=== PATIENT | male | born 1940 | race Caucasian/White ===

== ENCOUNTER 2017-07-22 15:32 | Inpatient (IN) | payer OTHER ==
[~2017-07-22] VITALS: Ht 172.7 cm; Wt 74.8 kg
--- NOTE | ~2017-07-22 | EKG ---
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
--- NOTE | ~2017-07-22 | 2DMMODE ---
[facility] [address] [place] [address] 2 D/M-MODE ECHOCARDIOGRAM Name: EVELIA ADAMSON Room #: 205-P [facility] IN ..#: [id number] Admission: 07/22/17 Attend Phys: Rakesh Blanco, Discharge: Date of : 44 Date of Service: 07/23/17 0950 Report #: [id number] THIS REPORT FOR: //name// APPROVED REPORT Study performed: 07/23/2017 07:17:30 EXAM: Comprehensive 2D, Doppler, and color-flow Echocardiogram Patient Location: Echo lab Room #: [facility] Status: routine BSA: 1.88 HR: 73 bpm BP: 143/87 mmHg Rhythm: NSR Other Information Study Quality: Fair/low parasternal window Technically limited study due to lung disease. Indications Recent pulmonary embolism. Hx: COPD 2D Dimensions RVDd: 39.15 mm LVEF(%): 55.19 (>50%) IVSd: 9.08 (7-11mm) LVOT Diam: 21.10 (18-24mm) LVDd: 39.39 mm PWd: 8.33 (7-11mm) LVDs: 28.26 (25-40mm) Aortic Root: 34.20 mm Hyatt's LVEF: 55.19 % Volumes Left Atrial Volume (Systole) Single Plane 4CH: 33.73 mL Single Plane 2CH: 31.54 mL LA ESV Index: 19.00 mL/m2 Aortic Valve AoV Peak Randy.: 1.14 m/s AO Peak Gr.: 5.24 mmHg LVOT Max P.28 mmHg LVOT Max V: 0.91 m/s ANGI Vmax: 2.77 cm2 Mitral Valve E/A Ratio: 0.8 [facility] [address] [place] [address] 2 D/M-MODE ECHOCARDIOGRAM Name: EVELIA ADAMSON Room #: 205-[facility] IN ..#: [id number] Admission: 07/22/17 Attend Phys: Rakesh Blanco, Discharge: Date of : 44 Date of Service: 07/23/17 0950 Report #: [id number] MV Decel. Time: 184.41 ms MV E Max Randy.: 0.71 m/s MV A Randy.: 0.86 m/s MV PHT: 53.48 ms IVRT: 92.27 ms Pulmonary Valve PV Peak Randy.: 0.96 m/s PV Peak Gr.: 3.78 mmHg Tricuspid Valve TR Peak Randy.: 3.04 m/s RAP Estimate: 5.00 mmHg TR Peak Gr.: 37.04 mmHg Left Ventricle The left ventricle is normal size. There is normal LV segmental wall motion. There is normal left ventricular wall thickness. Left ventricular systolic function is normal. LVEF is 55-60%. Mild diastolic dysfunction is present (impaired relaxation pattern). Right Ventricle The right ventricle is normal size. The right ventricular systolic function is normal. Atria The left atrium size is normal. The right atrium size is normal. Aortic Valve Aortic valve is calcified. Trace aortic regurgitation. There is no aortic valvular stenosis. Mitral Valve The mitral valve is normal in structure. There is no mitral valve regurgitation noted. No evidence of mitral valve stenosis. Tricuspid Valve The tricuspid valve is normal in structure. Trace to mild tricuspid regurgitation. Estimated PAP is 40-45mmHg. Pulmonic Valve The pulmonary valve is normal in structure. There is no pulmonic valvular regurgitation. Great Vessels The aortic root is normal in size. Aortic arch is not well [facility] [address] [place] [address] 2 D/M-MODE ECHOCARDIOGRAM Name: EVELIA ADAMSON Room #: 205-P [facility] IN .R.#: [id number] Admission: 07/22/17 Attend Phys: Rakesh Blanco, Discharge: Date of : 44 Date of Service: 07/23/17 0950 Report #: [id number] visualized. IVC is normal in size and collapses >50% with inspiration. Pericardium There is no pericardial effusion. <Conclusion> The left ventricle is normal size. There is normal left ventricular wall thickness. Left ventricular systolic function is normal. Mild diastolic dysfunction is present (impaired relaxation pattern). The right ventricle is normal size. The left atrium size is normal. Aortic valve is calcified. Trace aortic regurgitation. The mitral valve is normal in structure. Trace to mild tricuspid regurgitation. Estimated PAP is 40-45mmHg. <ELECTRONICALLY SIGNED> By: Jan Crabtree MD 07/23/1750 9 Jan Crabtree MD /INF
--- NOTE | ~2017-07-22 | EKG ---
[address] [address] ELECTROCARDIOGRAM REPORT Name: EVELIA ADAMSON Room #: 205-P ADM IN M.R.#: [id number] Admission: 07/22/17 Attend Phys: Rakesh Blanco MD Discharge: Date of : 44 Report #: [id number] THIS REPORT FOR: //name// [facility] Test Date: 2017-07-27 Test Time: 11:13:48 Pat Name: EVELIA ADAMSON Department: Room: 205 P Gender: M Vasc Tech: Justin MANCILLA : 1940 Requested By: Darlene Mann Order Number: [id number] MD: Mohinder Saha Measurements Intervals [place] Rate: 82 P: 64 MA: 145 QRS: 75 QRSD: 96 T: 56 QT: 394 QTc: 461 Interpretive Statements Sinus rhythm No significant abnormality Compared to ECG 07/22/2017 16:10:52 No significant changes Electronically Signed On 07-27-2017 16:37:13 CDT by Mohinder Saha [email or web address] <ELECTRONICALLY SIGNED> By: Mohinder Saha MD, [facility] 07/27/17 1637 111 12 Mohinder Saha MD, [facility] /EPI
--- NOTE | ~2017-07-22 | HC ---
[facility] [place] [address] [place] [address] CONSULTATION Name: EVELIA ADAMSON Room #: 205-P ADM IN M.R.#: [id number] Admission: 07/22/17 Attend Phys: Rakesh Blanco MD Discharge: Date of : 44 Report #: [id number] THIS REPORT FOR: //name// CC: [facility] physician/PCP Rakesh Blanco DATE OF SERVICE: 07/24/2017 REFERRING PROVIDER: Fede Alexandra MD REASON FOR CONSULTATION: Colovesical fistula. HISTORY OF PRESENT ILLNESS: The patient is a 77-year-old male who presented with a year and a half of chronic right leg swelling and dyspnea on exertion. The patient was found to have a DVT and was placed on Lovenox and Coumadin. Ultimately, the patient was then transitioned to Xarelto with a CT angiogram of the chest showing pulmonary emboli. While admitted, he has received a repeat CT angiogram of the chest as well as a CT scan of the abdomen and pelvis due to mild nonspecific abdominal discomfort. 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 PAST MEDICAL HISTORY: COPD, hyperlipidemia and memory issues. HOME MEDICATIONS: Xarelto, fluticasone, atorvastatin, donepezil, and Lovenox. ALLERGIES: SULFA, which causes a rash. FAMILY HISTORY: Reviewed and noncontributory. SOCIAL HISTORY: The patient stopped smoking 7 years ago. Drinks 2 beers daily. Denies illicit drug use. REVIEW OF SYSTEMS: GENERAL: The patient denies nocturnal fevers or chills. HEENT: No change in vision, change in hearing. NECK: No swelling or difficulty swallowing. HEART: No chest pain, palpitations. LUNGS: No coughing, but does have dyspnea on exertion. ABDOMEN: Minimal abdominal discomfort, but no nausea or vomiting. GENITOURINARY: No dysuria or hematuria. ENDOCRINE: No polyuria, polydipsia. HEMATOLOGIC: No history of bleeding or easy bruising. EXTREMITIES: No history of weakness or limited range of motion. NEUROLOGIC: No history of syncope or near syncopal episodes. SKIN AND INTEGUMENT: No history of abnormal lesions or moles. [address] [address] CONSULTATION Name: EVELIA ADAMSON Room #: [facility] IN .R.#: [id number] Admission: 07/22/17 Attend Phys: Rakesh Blanco MD Discharge: Date of : 42 Report #: [id number] PSYCHIATRIC: No history of anxiety or depression. PHYSICAL EXAMINATION: VITAL SIGNS: Temperature 97.6, pulse 79, respirations 20, blood pressure 144/77. He is 5 feet 8 inches tall and weighs 154 pounds. GENERAL: Alert and oriented, in no acute distress. HEENT: Normocephalic, atraumatic. Pupils equal, round, reactive to light. NECK: Supple, without lymphadenopathy. Trachea midline. HEART: Regular rate and rhythm. LUNGS: Clear to auscultation bilaterally. ABDOMEN: Soft, nontender, nondistended. GENITOURINARY: Normal external male genitalia. EXTREMITIES: No clubbing, cyanosis, although he does have a slight edema to the right calf greater than the left. NEUROLOGIC: Cranial nerves 2-12 are grossly intact. PSYCHIATRIC: Normal mood and affect. SKIN AND INTEGUMENT: No abnormal lesions or moles. LABORATORY AND X-RAY DATA: CBC most recently showed a white blood cell count of 9.7 thousand, hemoglobin 14.2, platelets 335,000. His creatinine yesterday was 1.0. BNP was normal at 143. Ultrasound of the right lower extremity shows chronic nonocclusive DVT. Echocardiogram shows ejection fraction of 55-60% with only mild diastolic dysfunction. CT angiogram of the chest shows a large filling defect along the right main pulmonary artery consistent with pulmonary emboli and CT scan of the abdomen and pelvis shows a colovesical fistula. Thoracentesis was performed showing 960 mL of pleural fluid with cell count still pending. 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 The patient has never has never had a colonoscopy and has been evaluated by Urology as well as awaiting Dr. Alexandra's evaluation for possible colonoscopy. I have discussed the patient's case with Urology and Dr. Alexandra and depending upon the results of his colonoscopy. We will plan a definitive management moving forward. This will be complicated slightly by the new diagnosis of pulmonary emboli necessitating chronic anticoagulation, but once we have a further understanding of the colovesical fistula situation, I will discuss with Dr. Tafoya appropriately prior to any surgical intervention if needed/warranted. I did spend greater than 60 minutes evaluating the patient, both at the bedside as well as discussing with all other providers involved in his care today to generate the plan as delineated above. [address] [address] CONSULTATION Name: EVELIA ADAMSON Room #: 205-P ADM IN M.R.#: [id number] Admission: 07/22/17 Attend Phys: Rakesh Blanco MD Discharge: Date of : 42 Report #: [id number] I sincerely appreciate this consult. I will follow closely and leave any further recommendations in the patient's chart as appropriate. <ELECTRONICALLY SIGNED> By: Luz Mckeon MD, FACS 07/25/17 0843 1342 1635 Luz Mckeon MD, FACS /nt
--- NOTE | ~2017-07-22 | HC ---
[facility] [place] [address] CONSULTATION Name: EVELIA ADAMSON Room #: 205-P ADM IN M.R.#: [id number] Admission: 07/22/17 Attend Phys: Rakesh Blanco MD Discharge: Date of : 42 Report #: [id number] THIS REPORT FOR: //name// CC: Alirio Eddy DO [facility] physician/PCP Rakesh Lao MD REASON FOR CONSULTATION: PE. HISTORY OF PRESENT ILLNESS: The patient is a very pleasant 77-year-old gentleman who lives in the [facility] if I understand correctly. He reports about a year and a half of chronic right leg swelling and mild shortness of air that is mostly dyspnea on exertion. For some reason, he says it was initially worse or whatever. They did an ultrasound of his leg on 07/09/2017 at [facility] and thus found a partially compressible eccentric thrombus in the mid right femoral vein along the wall, which may represent chronic nonocclusive thrombus. The popliteal vein and peroneal veins appear patent. Probable noncompressible occlusive thrombus in the proximal posterior tibial vein with absent Doppler flow. The patient was begun on Lovenox and warfarin. Two days later, he said he was about the same, but he received a call, was changed to Xarelto and on the , he had a CT angiogram at diagnostic imaging, which described finding of right main pulmonary artery and right lower lobe pulmonary embolism. This eccentric location of the thrombus is more suggestive of a subacute or chronic thrombus, though acute thrombus is not completely excluded. Right upper lobe noncalcified pulmonary nodule and possible additional left upper lobe noncalcified pulmonary nodule was noted. They suggested a 6-month followup. There are also some moderate effusions. The patient continued on the Xarelto felt about the same, the leg was no worse, he still had some shortness of air on exertion, which was unchanged over the last year and a half. He then received a call yesterday from Dr. Santos Lao. I think he was going to be seen in a consult and he was asked to go to the ER for evaluation and probably admit. Since he has been here, his O2 sats on room air and not walking have been around 93-94. He did have a repeat ultrasound here that described some of the same exact abnormalities in the right lower leg without progression or regression by indirect comparison. The patient also had a V/Q scan here with high probability of pulmonary embolus. I should also note that at Dr. Eddy's office, he had drawn on 07/12/2017 which showed a factor VIII activity of 242% with upper range normal of 180%; protein C 70%, normal; protein S activity 101%, normal; antithrombin 396%, normal; activated protein C resistance normal; CEA at 0.8 normal; homocysteine 9.5, normal; anticardiolipin IgG normal at less than 14; anticardiolipin IgM normal at less than 12; beta 2 glycoprotein 1 IgG normal, less than 9; beta 2 glycoprotein 1 IgM normal less than 10, beta 2 glycoprotein 1 IgA normal at less than 9, prothrombin gene mutation was negative, chemistries were normal. Do note PSA was elevated at 8.49, CBC that same date was essentially unremarkable, INR that day was 1.1 with [facility] [address] [place] [address] CONSULTATION Name: EVELIA ADAMSON #: 205-P [facility] IN [place]#: [id number] Admission: 07/22/17 Attend Phys: Rakesh Blanco MD Discharge: Date of : 42 Report #: [id number] a PT of 12.3 and a PTT of 30 seconds. PAST MEDICAL HISTORY: The patient states that his shortness of air has been the same as it has been for about the last year and a half. He did get slight get significantly better after receiving his first aerosol treatment last night. He coughed some curd up. He has been breathing better since that time. Also, he has a history of hyperlipidemia and some memory issues. He also may have COPD. MEDICATIONS: At home had included rivaroxaban, fluticasone inhaler, atorvastatin, donepezil, and then the Lovenox. Here in the hospital, his current medications include Lovenox 80 b.i.d. subcu, atorvastatin 10 at bedtime, donepezil 10 at bedtime, ipratropium and albuterol 3 mL respiratory therapy every 4 hours while awake, budesonide 0.5 respiratory therapy b.i.d., hydralazine as needed, MiraLax daily, nitroglycerin and Zofran as needed, IV fluids. SOCIAL HISTORY: He is from the [facility]. Worked for [employer] for about 40 years, stopped smoking 7 years ago. He has maybe 2 beers a day. No street drugs. FAMILY HISTORY: No one with clots. Did have a sister who of complications from throat cancer. Has 1 son who is alive and well. Lives at home with his . They also have a Chihuahua-Terrier mix called [employer]. PHYSICAL EXAMINATION: GENERAL: The patient appears his stated age. VITAL SIGNS: Height is 5 feet 8, which is 172.7 cm. Weight is 154.9 pounds, which is 74.8 kilograms. Blood pressure is 144/77 in the left arm with an O2 sat of 94 on room air, pulse is 79, respirations 20, temperature afebrile at 97.6. MOOD: He is very pleasant, alert and conversant. NEUROLOGIC: Face is symmetrical, he is moving all extremities. LUNGS: Seem mostly clear. HEART: Seems regular rate. No enlarged lymph nodes. ABDOMEN: Without masses, nontender. EXTREMITIES: Without clubbing, cyanosis. There may be some slight swelling of the right calf more than the left. ASSESSMENT AND PLAN: 1. Right leg deep venous thrombosis and right pulmonary emboli. History suggests chronic nature of clot and also symptoms. We will await echocardiogram to see if there is heart strain from the clot. There does not appear any evidence of failure of anticoagulation, just given what may be chronic nature, this may not dissolve very well. Continue Lovenox for now and await echocardiogram. We will also check DRVVT and hexagonal phase phospholipid, other tests are negative. We will also check CT abdomen and pelvis to make sure [address] [address] CONSULTATION Name: EVELIA ADAMSON Alyse Room #: [address] [place] [address] IN M.R.#: [id number] Admission: 07/22/17 Attend Phys: Rakesh Blanco MD Discharge: Date of : 42 Report #: [id number] he does not have occult malignancy. 2. Pulmonary nodules. I agree with potential followup in 6 months or so. 3. Chronic obstructive pulmonary disease, continue on aerosols. 4. Elevated PSA, defer to Dr. Eddy. 5. Hyperlipidemia. We will likely continue statins. 6. Memory issues. We will likely continue Aricept and donepezil. 7. Others. We will probably check O2 sat resting and walking to see if he desats. At this point, I do not see a reason to restrict his activity since he has been on anticoagulation for almost 2 weeks and/or I do not think there is any evidence of friable clot. We will follow with you. <ELECTRONICALLY SIGNED> By: Joe Tafoya MD 07/26/17 0718 0843 1446 Joe Tafoya MD /nt
--- NOTE | ~2017-07-22 | HC ---
[facility] [place] [address] CONSULTATION Name: EVELIA ADAMSON Room #: 205-P [facility] IN M.R.#: [id number] Admission: 07/22/17 Attend Phys: Rakesh Blanco MD Discharge: Date of : 42 Report #: [id number] THIS REPORT FOR: //name// CC: LIBIA SIMPSON physician/PCP Rakesh Lao MD DATE OF SERVICE: 07/24/2017 HISTORY OF PRESENT ILLNESS: The patient is a 77-year-old male who had a recent diagnosis of pulmonary embolus and possible DVT, but also was diagnosed with likely hypercoagulable state. Upon further review, the patient has had weight loss, history of constipation. He therefore underwent a CT scan of the abdomen and pelvis on 07/23/2017, which shows gas within the urinary bladder. 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 The patient has noticed some air with urination within the last month. He states he has lost approximately 15-20 pounds over the last few months. He did have an episode of constipation, but then followed by diarrhea. He has never had a colonoscopy. He denies any obvious blood in his stools. There is no family history of colon cancer. he denies any abdominal pain currently. He was started on apparently Coumadin, switched to Xarelto; however, he has not had Xarelto for several days. He is currently on Lovenox 80 mg b.i.d. here. He did undergo a thoracentesis. He reports significant improvement in his breathing. He denies any shortness of breath at rest or dyspnea on exertion since his thoracentesis. He is not on oxygen at this time. Denies any nausea or vomiting. No fevers or chills. No current chest pain. PAST MEDICAL HISTORY: Recent diagnosis of pulmonary embolus. CT with colonic vesicular fistula, diverticulosis, history of COPD. ALLERGIES: SULFA. REVIEW OF SYSTEMS: As per HPI. SOCIAL HISTORY: Previous history of smoking, stopped 7 years ago. Reports occasional alcohol use. CURRENT MEDICATIONS: Tamsulosin, Lovenox b.i.d., Lipitor, donepezil, albuterol, Atrovent, budesonide, hydralazine, Tylenol p.r.n., MiraLax p.r.n., nitroglycerin p.r.n., Zofran p.r.n. [address] [address] CONSULTATION Name: EVELIA ADAMSON Room #: 205-P [facility] IN .R.#: [id number] Admission: 07/22/17 Attend Phys: Rakesh Blanco MD Discharge: Date of : 42 Report #: [id number] PHYSICAL EXAMINATION: VITAL SIGNS: Temperature is 98.3, pulse 90, blood pressure is 143/76, respiratory rate 18. His O2 sat is 96% on room air. GENERAL: He is alert and oriented x 3, in no acute distress. HEENT: Sclerae nonicteric. Oropharynx clear. NECK: Supple, without lymphadenopathy. CARDIOVASCULAR: Regular rate and rhythm. Chest with decreased breath sounds in the bases bilaterally. ABDOMEN: Soft. He is nontender, nondistended, normoactive bowel sounds. EXTREMITIES: No cyanosis, clubbing or edema. LABORATORY DATA: Sodium 137, potassium 4.0, chloride 106, bicarb 25, BUN 14, creatinine 1.0. INR 1.1. WBC is 9.7, hemoglobin 14.2, platelet count is 335. UA positive nitrite, wbc's greater than 25, bacteria greater than 30. ASSESSMENT AND PLAN: Abnormal CT showing colovesical fistula arising from the sigmoid colon. The patient has never had a colonoscopy before. This may be secondary to a malignancy, may be previous diverticulitis. Also, consider the possibility of inflammatory bowel disease. I would recommend proceeding with a colonoscopy on Wednesday. The patient does have a history of recent pulmonary embolus; however, he is satting well on room air. We will plan on prepping tomorrow for colonoscopy on Wednesday morning. Thank you for allowing me to participate in his care. <ELECTRONICALLY SIGNED> By: Fede Alexandra MD 07/28/17 1043 1537 1935 Fede Alexandra MD /nt
--- NOTE | ~2017-07-22 | HC ---
[facility] [place] [address] CONSULTATION Name: EVELIA ADAMSON Room #: 205-P [facility] IN .R.#: [id number] Admission: 07/22/17 Attend Phys: Rakesh Blanco MD Discharge: 07/28/17 Date of : 44 Report #: [id number] THIS REPORT FOR: //name// CC: [facility] physician/PCP Rakesh Blanco DATE OF SERVICE: 07/27/2017 Cardiology Consultation HISTORY OF PRESENT ILLNESS: A 77-year-old male who looks like he was admitted approximately a week ago with a diagnosis of a pulmonary embolism and history of some right lower extremity DVT. It subsequently looks like he has been in the hospital for approximately a week. 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 He is on Lovenox. He had been treated with Xarelto for a couple of weeks prior. His recollection at this time is not real good. He has had multiple GI workups to find this fistula. He is on antibiotics. He was afebrile initially and now afebrile. I am asked to weigh in on for a short period of SVT. The echo Doppler done on 07/22 was essentially normal except for some mild pulmonary hypertension with a PA pressure of 40 to 45 mmHg. He denies any cardiac history. He has a 40 to 50 pack-year history of smoking, which he quit 7 years ago. His EKG is sinus rhythm with nonspecific changes. He denies any chest pain or anginal complaints. Apparently, he is active, but does not regularly exercise. LABORATORY DATA: Reveals a creatinine of 1.0, potassium of 4.2. Troponin is negative. BNP was 143. H and H is 14 and 41 with a white count of 7.6, platelets 287. IMAGING DATA: CT of the chest: Blunting of the costophrenic angles. Chest x-ray: Blunting of costophrenic angle, small tiny bilateral pleural effusions. The CT of the abdomen did exhibit the colovesicular fistula arising from the sigmoid colon. RECOMMENDATIONS AND PLAN: arising from the sigmoid. General Surgery has been consulted in addition and he will eventually need a sigmoid colectomy with takedown of the colovesicular fistula and off anticoagulation per hematology, not felt to need to be emergently repaired. PAST MEDICAL HISTORY: Positive for the DVT, PE, COPD, prior tobacco use, hypercholesterolemia, hypertension. ALLERGIES: SULFA. SOCIAL HISTORY: He is . He is retired. He has 1 grown child. Quit tobacco after 40 pack-year 7 years ago. [place] [address] CONSULTATION Name: EVELIA ADAMSON Room #: 205-P [facility] IN M.R.#: [id number] Admission: 07/22/17 Attend Phys: Rakesh Blanco MD Discharge: 07/28/17 Date of : 44 Report #: [id number] FAMILY HISTORY: Negative for premature coronary disease. REVIEW OF SYSTEMS: Negative except for that as stated above and some occasional gas noted with urination. PHYSICAL EXAMINATION: VITAL SIGNS: Blood pressure 110/72, pulse 80s. HEENT: Eyes reveal xanthelasmas. Pharynx is clear. NECK: Shows preserved upstrokes without JVD or bruits. LUNGS: Clear. CARDIOVASCULAR: Regular rate and rhythm, S1, S2, without murmur or gallop. ABDOMEN: Soft. No HSM or abdominal bruit. EXTREMITIES: Reveal no edema. Distal pulses intact. NEUROLOGIC: Nonfocal. SKIN: Warm and dry without xanthoma or ulcer. MUSCULOSKELETAL: Generalized arthritic changes. ASSESSMENT: 1. Paroxysmal supraventricular tachycardia, resolved. 2. 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 3. History of borderline hypertensive, although well controlled in the hospital setting. 4. Chronic obstructive pulmonary disease. 5. Mild pulmonary hypertension by echocardiogram. 6. Hypercholesterolemia. RECOMMENDATIONS AND PLAN: I have added low-dose beta sierra. Otherwise, his cardiovascular status appears to be stable. We would consider outpatient stress testing, particularly if this surgery is going to be put off. He has risk factors for coronary artery disease, but nothing documented. We will continue to follow with you. We would continue on the Lipitor. Continue on a statin, metoprolol 25 b.i.d. is initiated today and antibiotics. Further recommendations after the decision made on surgery. <ELECTRONICALLY SIGNED> By: Tyler Urbina MD, FACC 07/30/17 0900 21 21 Tyler Urbina MD, FACC /nt
[2017-07-22 15:40] VITALS: BP 167/79
[2017-07-22 16:10] LABS: ABSOLUTE NEUTROPHILS 6.8 thou/uL (1.4-8.2); BASOPHILS 0.8 % (0.0-2.0); EOSINOPHILS 4.1 % (0.0-3.0); HEMATOCRIT 41.7 % (42.0-52.0); HEMOGLOBIN 14.2 gm/dL (14.0-18.0); LYMPHOCYTES 16.3 % (24.0-44.0); MCH 31.2 pg (26.0-34.0); MCV 91.9 fL (80.0-100.0); MONOCYTES 8.5 % (1.0-8.0); PLATELET COUNT 335 thou/uL (150-400); POLYS 70.3 % (36.0-66.0); RBC 4.54 mil/uL (4.50-6.00); RDW 13.8 % (10.5-14.5); WBC 9.7 thou/uL (4.0-11.0)
[2017-07-22 16:19] LABS: ANION GAP 7 mmol/L (7-16); BUN 18 mg/dL (7-18); CALCIUM 9.1 mg/dL (8.5-10.1); CHLORIDE 107 mmol/L (98-107); CO2 25 mmol/L (21-32); GLUCOSE 103 mg/dL (74-106); POTASSIUM 3.8 mmol/L (3.5-5.1); SODIUM 139 mmol/L (136-145)
[2017-07-22] MEDS ORDERED: XARELTO15 MG PO (16:24)
[2017-07-22] MEDS ORDERED: BREO ELLIPTA 21 EACH INH (16:24)
[2017-07-22] MEDS ORDERED: ARICEPT 5 MG TAB5 MG PO (16:25)
[2017-07-22] MEDS ORDERED: ENOXAPARIN80 MG/0.1 SUBQ (16:25)
[2017-07-22] MEDS ORDERED: ARICEPT10 MG PO (16:25)
[2017-07-22] MEDS ORDERED: LIPITOR10 MG PO (16:25)
[2017-07-22 16:27] LABS: TROPONIN-I < 0.04 ng/mL (<0.06)
[2017-07-22 17:29] LABS: INR 1.1; PROTIME 11.6 Seconds (9.3-11.4)
[2017-07-22 17:37] VITALS: BP 143/76
[2017-07-22 18:12] VITALS: BP 143/76
[2017-07-22 18:27] VITALS: BP 159/103
[2017-07-22 19:51] VITALS: BP 100/76
[2017-07-22 23:15] VITALS: BP 141/85
[2017-07-23 03:21] VITALS: BP 143/87
[2017-07-23 04:05] LABS: CALCIUM 8.7 mg/dL (8.5-10.1); MAGNESIUM 1.9 mg/dL (1.8-2.4)
[2017-07-23 08:00] VITALS: BP 144/77
[2017-07-23 12:00] VITALS: BP 132/60
[2017-07-23 14:50] VITALS: BP 132/60
[2017-07-23 16:00] VITALS: BP 122/77
[2017-07-23 19:51] VITALS: BP 127/77
[2017-07-24 03:52] LABS: URINE BILIRUBIN NEGATIVE (Negative); URINE BLOOD 1+ (Negative); URINE CLARITY SL CLOUDY; URINE COLOR YELLOW; URINE GLUCOSE-RANDOM* NEGATIVE (Negative); URINE KETONES NEGATIVE (Negative); URINE LEUKOCYTES-REFLEX 3+ (Negative); URINE NITRITE-REFLEX POSITIVE (Negative); URINE PROTEIN (DIPSTICK) NEGATIVE (Negative); URINE UROBILINOGEN 0.2 E.U./dl (0.2-1.0)
[2017-07-24 03:59] LABS: BACTERIA-REFLEX >30 Many /HPF (None Seen); CASTS None Seen /LPF (None Seen); CRYSTALS None Seen /LPF (None Seen); MUCUS None Seen strn/LPF (None Seen); SQUAMOUS None Seen /LPF (0-3); URINE RBC 3-10 Few /HPF (0-2); URINE WBC-REFLEX >25 Many /HPF (0-5); WBC CLUMPS Packed (None Seen)
[2017-07-24 05:09] VITALS: BP 147/92
[2017-07-24 07:15] VITALS: BP 145/90
[2017-07-24 11:13] LABS: CLARITY HAZY; COLOR YELLOW; TOTAL VOLUME 55 mL
[2017-07-24 11:20] VITALS: BP 143/76
[2017-07-24 11:21] LABS: BF NUCLEATED CELLS 850; BF RBC 4055
[2017-07-24 14:31] LABS: BF NEUTROPHILS 2; SOURCE THORACENTESIS
[2017-07-24 16:20] VITALS: BP 150/74
[2017-07-24 19:18] VITALS: BP 148/79
[2017-07-25 03:30] LABS: HEMATOCRIT 42.3 % (42.0-52.0); HEMOGLOBIN 14.4 gm/dL (14.0-18.0); MCH 31.1 pg (26.0-34.0); MCV 91.6 fL (80.0-100.0); RBC 4.62 mil/uL (4.50-6.00); RDW 13.7 % (10.5-14.5); WBC 9.9 thou/uL (4.0-11.0)
[2017-07-25 03:36] LABS: CALCIUM 8.8 mg/dL (8.5-10.1)
[2017-07-25 04:45] VITALS: BP 123/71
[2017-07-25 08:32] VITALS: BP 99/68
[2017-07-25 12:31] VITALS: BP 95/70
[2017-07-25 13:07] LABS: BODY FLUID ALBUMIN 2.4 g/dL (()); BODY FLUID AMYLASE 25 U/L (()); BODY FLUID GLUCOSE 101 mg/dL (()); BODY FLUID LDH 251 IU/L (())
[2017-07-25 16:56] VITALS: BP 130/81
[2017-07-25 20:06] VITALS: BP 147/84
[2017-07-26 03:12] LABS: HEMATOCRIT 41.5 % (42.0-52.0); HEMOGLOBIN 14.2 gm/dL (14.0-18.0); MCH 31.3 pg (26.0-34.0); MCHC 34.3 g/dL (28.0-37.0); MCV 91.2 fL (80.0-100.0); RBC 4.55 mil/uL (4.50-6.00); RDW 13.5 % (10.5-14.5); WBC 7.6 thou/uL (4.0-11.0)
[2017-07-26 03:29] LABS: CALCIUM 8.8 mg/dL (8.5-10.1); POTASSIUM 4.2 mmol/L (3.5-5.1)
[2017-07-26 04:09] VITALS: BP 128/77
[2017-07-26 07:45] VITALS: BP 141/77
[2017-07-26 08:59] LABS: SOURCE THORACENTESIS
[2017-07-26 11:50] VITALS: BP 132/78
[2017-07-26 15:52] VITALS: BP 126/74
[2017-07-26 19:42] VITALS: BP 134/71
[2017-07-26 23:11] VITALS: BP 126/75
[2017-07-27 04:48] VITALS: BP 121/70
[2017-07-27 07:51] VITALS: BP 115/67
[2017-07-27 11:44] VITALS: BP 123/70
[2017-07-27 15:35] VITALS: BP 111/72
[2017-07-27 19:41] VITALS: BP 129/73
[2017-07-28] VITALS (15 sets, daily range): BP systolic 115–132; BP diastolic 53–82
[2017-07-28 04:04] LABS: HEMOGLOBIN 13.9 gm/dL (14.0-18.0); MCH 31.3 pg (26.0-34.0); MCHC 33.8 g/dL (28.0-37.0); MCV 92.6 fL (80.0-100.0); RBC 4.42 mil/uL (4.50-6.00); RDW 13.7 % (10.5-14.5); WBC 6.9 thou/uL (4.0-11.0)
[2017-07-28 04:14] LABS: CALCIUM 8.8 mg/dL (8.5-10.1); POTASSIUM 4.2 mmol/L (3.5-5.1)
[2017-07-28] MEDS ORDERED: ENOXAPARIN80 MG/0.1 SUBQ (12:56)
[2017-07-28] MEDS ORDERED: LOPRESSOR25 PO (13:04)
[2017-07-28] MEDS ORDERED: AUGMENTIN 875-1 EACH PO (13:05)
[2017-07-28] MEDS ORDERED: DUONEB 2.5-0.5 M3 ML INH (15:04)
== END 2017-07-28 16:24 | disposition home or self-care (01) | DRG 167 ==
LOC: ER 15:32 → EROBS 17:09 → 2N 17:09
PROVIDERS: Hospitalist; Internal Medicine Pulmonary Disease; Nurse Practitioner; Specialist
PROC: 0W993ZZ Drainage of Right Pleural Cavity, Percutaneous Approach (ICD-10-PCS; principal; 2017-07-24)
PROC: 0DBN8ZZ Excision of Sigmoid Colon, Via Natural or Artificial Opening Endoscopic (ICD-10-PCS; 2017-07-26)
PROC: 06H03DZ Insertion of Intraluminal Device into Inferior Vena Cava, Percutaneous Approach (ICD-10-PCS; 2017-07-28)
DX: I26.99 Other pulmonary embolism without acute cor pulmonale (principal); K63.2 Fistula of intestine; I82.411 Acute embolism and thrombosis of right femoral vein; I47.1 Supraventricular tachycardia; J90 Pleural effusion, not elsewhere classified; K64.8 Other hemorrhoids; M32.9 Systemic lupus erythematosus, unspecified; D12.5 Benign neoplasm of sigmoid colon; R91.8 Other nonspecific abnormal finding of lung field; K57.30 Diverticulosis of large intestine without perforation or abscess without bleeding; I27.20 Pulmonary hypertension, unspecified; E78.00 Pure hypercholesterolemia, unspecified; N30.90 Cystitis, unspecified without hematuria; J44.9 Chronic obstructive pulmonary disease, unspecified; Z87.891 Personal history of nicotine dependence; Z79.01 Long term (current) use of anticoagulants; Z79.51 Long term (current) use of inhaled steroids; Z79.899 Other long term (current) drug therapy; Z88.2 Allergy status to sulfonamides; Z80.8 Family history of malignant neoplasm of other organs or systems
CPT/HCPCS: 10081; 62110; 62900; 70005

== ENCOUNTER → 2017-07-22 | Outpatient (CLI) | payer OTHER ==
[~2017-07-22] MED LIST: ARICEPT 5 MG TAB5 MG PO; ARICEPT10 MG PO; AUGMENTIN 875-1 EACH PO; BREO ELLIPTA 21 EACH INH; DUONEB 2.5-0.5 M3 ML INH; ENOXAPARIN80 MG/0.1 SUBQ; LIPITOR10 MG PO; LOPRESSOR25 PO; XARELTO15 MG PO
== END ==
LOC: RAD 11:10
DX: J44.9 Chronic obstructive pulmonary disease, unspecified (principal); Z88.2 Allergy status to sulfonamides; I26.99 Other pulmonary embolism without acute cor pulmonale

== ENCOUNTER 2017-09-28 05:39 | Inpatient (IN) | payer OTHER ==
[~2017-09-28] VITALS: Ht 172.7 cm; Wt 70.3 kg
--- NOTE | ~2017-09-28 | PATH ---
[facility] [address] [place] [address] PATHOLOGY RPT PROCEDURE Name: LIRAHENRRY Room #: 363-P ADM IN M.R.#: [id number] Admission: 09/28/17 Date of : 44 Discharge: Report #: [id number] Path Case #: [id number] [facility] Accession Number: [id number] . 01 Material submitted: . SIGMOID COLON WITH COLOVESICAL FISTULA . 01 Clinical history: . Colovesical fistula . 02 Diagnosis: Large intestine, sigmoid colon with colovesical fistula, excision: - Extensive diverticulosis with focal area of perforation, history of colovesical fistula provided. - Extensive fibrous adhesions and serosal disruption as well as congestion. - Negative for dysplasia or malignancy. - Margins of resection unremarkable. (IUV:anya; 10/01/2017) QMS/10/01/2017 . 02 Electronically signed: . Blanca Demarco MD, Pathologist NPI- [id number] . 01 Gross description: . The specimen is received in formalin, labeled "Henrry iLra, sigmoid colon with colovesical fistula) and consists of an unoriented segment of colon measuring 13.5 cm in length and 2.7 cm in diameter with mesocolon measuring up to 4.0 cm. Both margins are stapled closed. There are dense hemorrhagic fibrous adhesions extending to within 0.5 cm of one margin. Further serial sectioning reveals multiple diverticula ranging from 0.2 cm to 1.0 cm and a thickened serosa/muscular wall. One diverticulum shows evidence of perforation and no polyps or additional mass lesions are identified. [employer] sections are submitted as follows: . A1: Margin farthest from adhesions A2: Margin nearest to adhesions A3-A4: Perforated diverticulum A5-A6: Additional phone representative thickened wall/serosa (SDY; 09/29/2017) SYU/SYU . 02 Pathologist provided ICD-10: K57.32, K63.1, K63.89 . 02 [facility] [place] [place] [address] PATHOLOGY RPT PROCEDURE Name: HENRRY LIRA Alyse Room #: 363-P [facility] IN ..#: [id number] Admission: 09/28/17 Date of : 44 Discharge: Report #: [id number] Path Case #: [id number] Performed at: 01 [facility], [place], [place] [id number] MD Edin Benoit MD Phone: [phone] Performed at: [address] [id number] MD Blanca Demarco MD Phone: [phone]
--- NOTE | ~2017-09-28 | O ---
[facility] [place] [address] [place] [address] OPERATIVE REPORT Name: EVELIA ADAMSON Room #: 150-2 ADM IN M.R.#: [id number] Admission: 09/28/17 Attend Phys: Luz Mckeon MD, Discharge: Date of : 44 Report #: [id number] THIS REPORT FOR: //name// CC: Victor Manuel Mckeon DATE OF SERVICE: 09/28/2017 PREOPERATIVE DIAGNOSES: Diverticulitis, colovesical fistula. POSTOPERATIVE DIAGNOSES: Diverticulitis, colovesical fistula. PROCEDURES: Cystoscopy, bilateral open-ended ureteral catheter placement. SURGEON: Chavo Sarah M.D. [employer]ATIONS DEPUTY DIRECTOR: None. ANESTHESIA: General with endotracheal tube. ESTIMATED BLOOD LOSS: None. SPECIMENS: None. DRAINS: Bilateral 5-Bhutanese whistle-tip catheters and Segura catheter. COMPLICATIONS: None. INDICATIONS: This is a 77-year-old gentleman, previously admitted for PE, abdominal pain, pneumaturia, found to have colovesical fistula. We took him for cystoscopy, which confirmed midline posterior colovesical fistula. He has seen Dr. Mckeon and they have discussed fistula repair. He requested that I provide bilateral ureteral access catheters prior to the procedure. Risks, benefits and alternatives discussed at length. Risks including bleeding, infection, damage to the ureter, ureteral stricture, need for stent, need for subsequent procedures. He acknowledged that he understood these risks. He asked pertinent questions, which were answered and ultimately, he elected to proceed. PROCEDURE AND FINDINGS: The patient was identified in the preoperative holding area and consented. He was transported to the operative suite, where general anesthetic with endotracheal tube was administered. He was positioned in the low lithotomy position with all appropriate pressure points padded. He was prepped and draped in the typical sterile fashion. Timeout was performed, confirming correct patient, procedure and laterality. He received preoperative IV antibiotics. We began by inserting the rigid 22-Bhutanese cystoscope sheath through the urethra into the bladder with the visual obturator. Urethra was [address] [address] OPERATIVE REPORT Name: ADAMSONEVELIA Room #: 150-2 ADM IN ..#: [id number] Admission: 09/28/17 Attend Phys: Luz Mckeon MD, Discharge: Date of : 44 Report #: [id number] unremarkable. 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 Bladder was severely trabeculated. There was purulent material and debris, consistent with his fistula. This was coming from the midline diverticulum in the midline of the bladder. Bilateral ureteral orifices were orthotopic in position. Left ureteral orifice was identified. This was gently cannulated with sensor wire which was placed up into the left collecting system gently until resistance was met. A 5-Bhutanese whistle-tip catheter was then placed over the wire to a depth of 20-25 cm. Wire was removed. Catheter was left in place. Scope was removed. The scope was reinserted. This was repeated on the right side, with sensor wire placed up into the right collecting system and an additional 5-Bhutanese whistle-tip catheter placed over the wire to a depth of 20-25 cm. The catheter placed easily as it did on the left. Wire was removed. The catheter was left in place. The scope was removed. A 16-Bhutanese Segura catheter was placed with 10 mL of sterile water in the balloon left to gravity drainage. Catheters were placed into the lumen of the Segura catheter using 14-gauge Angiocath and secured to the catheter using Steri-Strips. These were all placed to gravity bag drainage. Procedure was terminated. Case was turned over to Dr. Mckeon. Please see his dictation for remaining details. By: [id number] Chavo Sarah MD /nt
--- NOTE | ~2017-09-28 | O ---
[facility] [place] [address] OPERATIVE REPORT Name: EVELIA ADAMSON Room #: 363-P [facility] IN M.R.#: [id number] Admission: 09/28/17 Attend Phys: Luz Mckeon MD, Discharge: Date of : 44 Report #: [id number] THIS REPORT FOR: //name// CC: Victor Manuel Mckeon DATE OF SERVICE: 09/28/2017 PREOPERATIVE DIAGNOSES: 1. Colovesical fistula. 2. Chronic obstructive pulmonary disease. 3. Hyperlipidemia. 4. Deep venous thrombosis and pulmonary emboli, on chronic anticoagulation. POSTOPERATIVE DIAGNOSES: 1. Colovesical fistula. 2. Chronic obstructive pulmonary disease. 3. Hyperlipidemia. 4. Deep venous thrombosis and pulmonary emboli, on chronic anticoagulation. PROCEDURES PERFORMED: 1. Robot-assisted laparoscopic sigmoid colectomy with low coloproctostomy. 2. Robotic-assisted laparoscopic takedown of a colovesical fistula with complex bladder repair and Omental flap placement. 3. Robotic-assisted laparoscopic mobilization of the splenic flexure. SURGEON: Luz Mckeon MD BULLDOZER PRESS OPERATOR: TRENA Bashir. ANESTHESIA: General endotracheal anesthesia. ESTIMATED BLOOD LOSS: 50 mL. COMPLICATIONS: None appreciated. SPECIMENS: Colon with fistula tract to pathology. INDICATIONS: The patient is a 77-year-old male who was initially seen while hospitalized for a COPD exacerbation and abdominal pain with passing air when urinating. The patient was found to have a generous colovesical fistula on both colonoscopy and cystoscopy with no evidence of mass lesion or a tumor. This was felt to be likely diverticular in nature. The patient is on chronic anticoagulation for his DVTs and pulmonary emboli and has been arranged for stopping his oral anticoagulant and has been on therapeutic Lovenox shots b.i.d. over the past several days. After receiving cardiology clearance to proceed, [facility] [address] [place] [address] OPERATIVE REPORT Name: JUAN DIEGOEVELIA Alyse Room #: 363-P [facility] IN ..#: [id number] Admission: 09/28/17 Attend Phys: Luz Mckeon MD, Discharge: Date of : 42 Report #: [id number] indication was for the above-mentioned procedures today after placement of bilateral ureteral stents done by urology as dictated under separate cover. PROCEDURE: After explaining the risks, benefits and alternatives of the procedure with the patient in detail in the preoperative holding area and obtaining written consent, the patient was brought to the operating room and placed supine on the operating room table. After conducting a thorough timeout procedure, verifying correct patient and procedure, the patient was given general endotracheal anesthesia. Once adequate anesthesia was obtained, his SCDs were hooked up to pneumatic compression device and he was given a preoperative dose of antibiotics in line with the SCIP protocol. The patient's abdomen was prepped and draped in standard surgical sterile fashion after positioning him in the low lithotomy position with his legs in the Yellofin stirrups. The procedure started with urology placing bilateral ureteral stents via cystoscopy, which is dictated under separate cover. Once that portion of the procedure was completed, I sterilely entered the operative field and 5 mL of 0.5% Marcaine with epinephrine were used to anesthetize the skin 2 cm cephalad to the umbilicus and 2 cm of the patient's right. A #15 bladed scalpel was used to create a small skin satinder at this location. A 5-mm Visiport was placed over 0-degree 5-mm laparoscope and was introduced through this incision site. Once intra-abdominal placement was verified visually, the obturator for the trocar and laparoscope were both removed and the abdomen was insufflated to 15 mmHg using carbon dioxide gas. I now placed a 12-mm robotic port in the right lower quadrant, and 2 standard 8-mm robotic ports in the left mid abdomen, the first being placed 2-cm cephalad to the umbilicus and 3 cm to the patient's left, and the final one being in the left lateral flank. All three additional trocars were placed under direct vision after anesthetizing the skin at each location with 5 mL of 0.5% Marcaine with epinephrine, and I had created appropriately sized skin nicks using a #15 bladed scalpel. The laparoscope was removed, changed to the extreme left lateral flank trocar and the initially placed Visiport was upsized to an 8-mm robotic camera port. The laparoscope was removed and the da Jonah SI robot was now docked in standard fashion with an 8-mm scope in the 30-degree angled down position. The robot was docked after placing the patient in steep Trendelenburg position with the left side elevated. I now broke scrub and entered the da Jonah robotic terminal and utilized odell with cautery as well as 2 Cadiere graspers. I was able to easily identify the colon and there was marked desmoplastic tissue in the pelvis with an obvious fistula tract welding the sigmoid colon to the bladder. I started my dissection looking the left abdomen where I mobilized along the white line of Toldt using odell with cautery. I stayed well away from the bowel and retracted the colon medially, which allowed me to easily take down the white line of Toldt and sweep the bowel medially. Evaluation of the diverticular area with fistulization showed that the transection point was going to necessitate mobilization of the splenic flexure and as such, I performed this at this juncture. I was able to easily retract this colon medially and take down the white line of Toldt all the way up over the flexure of the colon to allow the entire splenic flexure to drop [facility] [address] [place] [address] OPERATIVE REPORT Name: EVELIA ADAMSON Room #: 363-P [facility] IN .R.#: [id number] Admission: 09/28/17 Attend Phys: Luz Mckeon MD, Discharge: Date of : 44 Report #: [id number] down into the mid abdomen. Attention was now turned back down to the pelvis. The Cadiere graspers were used to grasp the thickened and woody colon and attempt medialization. I was ultimately able to identify the fistulous tract and took down this tract with odell with cautery for both hemostasis as well as to obliterate any of the mucosal tissue. This was done in an attempt to remove all fistulous tissue from the bladder side of the communication. Once this was done, this left a small bladder defect. Retraction of the distal sigmoid colon and rectum into the upper abdomen showed that the sigmoid itself was folded back on itself with desmoplastic reaction in the fistula tract was in fact at multiple locations including the mid sigmoid as well as the superior rectum. As such, this was going to necessitate a low anterior resection and the rectum was elevated and I was able to score on the mesorectum on both sides with odell with cautery and this allowed me to create a window in the mesorectum from the patient's right to left side with ease. Thee odell were then removed and the da Jonah stapler with a blue load was entered into the abdomen through the right lower quadrant stapling 12-mm trocar. Two firings of the stapler were carried out to transect the mid rectum at this healthy location. Grasping the proximal staple line and elevating it anteriorly now allowed me to take down the mesentery using the vessel sealer. As I was dissecting proximally up the mesentery with the vessel sealer, it faulted as I was coming across the inferior mesenteric artery allowing for bleeding, which was controlled with the Cadiere grasper. A new vessel sealer device was installed and I was able to obtain complete hemostasis. We were able to stay well away from both ureters, which were easily identified and both pericolic gutters by way of utilization of the ureteral stents. I carried this dissection of the mesentery as far cephalad as necessary to where it was just proximal to the diverticular disease and unhealthy colon. Attempts at approximating this healthy-appearing aspect of colon into the pelvis showed we had significant laxity as we had mobilized enough of the splenic flexure to allow for an appropriate anastomosis. I now placed the colon in the upper abdomen and turned my attention to the bladder repair. As the mucosa of the bladder appeared healthy and no further fistulous tissue was seen, a 2-0 Stratafix symmetric suture was placed into the abdomen. A SutureCut needle local delivery driver was now used to close the bladder defect in 2 layers, taking full thickness bites with the first layer in a standard running fashion as well as imbricating the second layer over top in standard running fashion. This gave us what appeared to be an excellent closure of the bladder and the needle was removed. An appropriate site for extraction in the Pfannenstiel location was now selected. The site was anesthetized with 10 mL of 0.5% Marcaine with epinephrine once we had undocked the robot in standard fashion. A #10 bladed scalpel was used to create a 3-cm transverse skin incision at this location. Electrocautery was used to carry this down through skin and subcutaneous tissues to ensure hemostasis until I arrived upon the level of the fascia. The fascia was scored vertically down the midline allowing entry into the abdomen in a controlled fashion by placing a finger through the initial entry point and opening down the midline to prevent injury from thermal spread. An Edwardo wound protector was then placed and I was able to easily grasp the [facility] [address] [place] [address] OPERATIVE REPORT Name: JUAN DIEGOEVELIA Alyse Room #: 363-P [facility] IN .R.#: [id number] Admission: 09/28/17 Attend Phys: Luz Mckeon MD, Discharge: Date of : 42 Report #: [id number] diseased colon with a Rodo clamp and elevated into the bed of the wound. The healthy location on the proximal sigmoid colon was identified and cleaned off with electrocautery and the auto-pursestring suture device was now placed at this location and the diseased colon was removed with curved Hinojosa scissors and passed off the field. The auto-pursestringer was removed and Allis clamps were used to triangulate the open end of bowel. The patient's colon was quite diminutive and was sized using the EEA sizers, which showed that it would only handle a 25 EEA stapler. The 25 EEA anvil was then placed in the open end of colon and the pursestring suture from the auto-pursestring suture device was now tied down around the post, having it seated nicely around the post. The end of bowel was healthy and there was no fatty tissue in the way that needed to be cleaned off at this juncture. The anvil was placed back in the abdomen and the cap was placed on the Edwardo retractor. The abdomen was fully reinsufflated. I now proceeded to use a suction solid die cutter device to evacuate any residual blood and irrigated copiously and the irrigant ran clear. We had meticulous hemostasis at this juncture. We now proceeded to grasp the staple line of the rectum and elevated it and it appeared that there was a significant serosal defect at the distal staple line. The distal staple line was then elevated between laparoscopic graspers and an Gonzales 60 mm blue load stapler was entered into the abdomen through the right lower quadrant, which was then used to transect this denuded tissue and allowed us to arrive at a completely healthy rectal stump at this juncture. The additional resected tissue was removed via the Edwardo retractor and passed off the field. We now proceeded to dilate the rectum using the 25 and 28 EEA sizers and the 28 EEA sizer would fit; however, we were unable to use that simply because the proximal colon would not allow for it. The 25 EEA stapler was then placed into the rectal stump and the spike was delivered out the end of the staple line. The spike and the anvil were then mated and the stapler was ratcheted down and fired ensuring no twisting to the descending colon. Once the stapler was fired, it was removed and the anastomotic rings were evaluated and we had two beefy complete anastomotic donuts. We had complete hemostasis. The anastomosis appeared well below the bladder repair. I now clamped the bowel proximally and instilled normal saline in the pelvis and using a rigid proctoscope was able to fully insufflate the distal sigmoid colon and rectum to allow for a leak test and we performed this on 3 occasions and saw no evidence of bubbling. We had excellent tidaling of the fluid with no bubbling thereby signifying a negative leak test. The irrigant was suctioned out and we had complete hemostasis. I now utilized 10 mL of Tisseel on the DupCormedicsspray device to coat both the entirety of the anastomosis as well as the bladder repair with fibrin glue. Once this was dry and the omentum was elevated and the Skyeraision device was used to create an omental flap. This omental flap was then placed down in the pelvis overlying the colorectal anastomosis and additional Tisseel was used to glue this in place. This appeared to give us an excellently buttressed omental flap repair of the colovesical fistula takedown. One final evaluation of the intra-abdominal domain showed no further evidence of pathology. The colorectal anastomosis was not under tension as there was a nice amount of laxity to it. We had complete [facility] [address] [place] [address] OPERATIVE REPORT Name: EVELIA ADAMSON Room #: 363-P [facility] IN [facility].#: [id number] Admission: 09/28/17 Attend Phys: uLz Mckeon MD, Discharge: Date of : 42 Report #: [id number] donuts with negative leak test. We had complete hemostasis. I now closed the 12 mm fascial incision for the port site in the right lower quadrant under direct vision using the Isidro-Jairo suture passer device. This was tied down under direct vision. The Edwardo retractor was removed and the fascia was closed using a #1 PDS in standard running fashion. Once this was tied down, I gently reinsufflated the abdomen to 5 mmHg and using laparoscope, I was able to visualize the suture repair to ensure I did not catch omentum or bowel with my suture. This showed an excellent repair down the lower midline fascial wound. The abdomen was fully desufflated. All remaining trocars were removed under direct vision. A 4-0 Monocryl was used in a standard subcuticular fashion for all skin incisions and Dermabond glue was applied to all skin wounds. At the end of the procedure, all instrument, needle and sponge counts were correct. The patient tolerated the procedure without incident, was awakened in the operating room and transitioned to the recovery room in stable condition with no apparent complications. <ELECTRONICALLY SIGNED> By: Luz Mckeon MD, FACS 09/29/17 [id number] Luz Mckeon MD, FACS /nt
[~2017-09-28 05:39] MED LIST changes: +ALBUTEROL2.5 MG/31 INH; +ASPIRIN325 PO; +TRELEGY ELLIPT1 EACH INH; +VITAMIN B-12500 MCG PO; +VITAMIN D-32000 UNIT PO
[2017-09-28 06:23] VITALS: BP 144/77
[2017-09-28 15:30] VITALS: BP 130/66
[2017-09-28 16:18] VITALS: BP 103/71
[2017-09-28 19:23] VITALS: BP 141/80
[2017-09-29 00:14] VITALS: BP 92/64
[2017-09-29 03:23] VITALS: BP 107/76
[2017-09-29 05:21] LABS: HEMATOCRIT 30.9 % (42.0-52.0); MCHC 34.2 g/dL (28.0-37.0); MCV 93.5 fL (80.0-100.0); RBC 3.3 mil/uL (4.50-6.00); RDW 14.4 % (10.5-14.5); WBC 17.3 thou/uL (4.0-11.0)
[2017-09-29 05:32] LABS: HEMOGLOBIN 10.6 gm/dL (14.0-18.0)
[2017-09-29 05:43] LABS: CALCIUM 7.9 mg/dL (8.5-10.1); CREATININE 1.5 mg/dL (0.7-1.3); POTASSIUM 4.7 mmol/L (3.5-5.1)
[2017-09-29 08:15] VITALS: BP 92/62
[2017-09-29 15:52] VITALS: BP 122/63
[2017-09-29 19:16] VITALS: BP 132/70
[2017-09-30 04:44] VITALS: BP 138/75
[2017-09-30 06:27] LABS: HEMATOCRIT 28.4 % (42.0-52.0); HEMOGLOBIN 9.7 gm/dL (14.0-18.0); MCHC 34.2 g/dL (28.0-37.0); MCV 93.7 fL (80.0-100.0); RBC 3.03 mil/uL (4.50-6.00); RDW 14.4 % (10.5-14.5); WBC 13.1 thou/uL (4.0-11.0)
[2017-09-30 06:41] LABS: CREATININE 1.1 mg/dL (0.7-1.3); POTASSIUM 4.6 mmol/L (3.5-5.1)
[2017-09-30 08:26] VITALS: BP 119/69
[2017-09-30 13:40] VITALS: BP 141/77
[2017-09-30 20:31] VITALS: BP 89/61
[2017-09-30 23:45] VITALS: BP 112/81
[2017-10-01 03:53] VITALS: BP 119/78
[2017-10-01 08:14] VITALS: BP 110/77
[2017-10-01 10:12] LABS: HEMATOCRIT 26.1 % (42.0-52.0); MCH 31.9 pg (26.0-34.0); MCHC 34.5 g/dL (28.0-37.0); MCV 92.3 fL (80.0-100.0); RBC 2.83 mil/uL (4.50-6.00); RDW 14.2 % (10.5-14.5); WBC 15.3 thou/uL (4.0-11.0)
[2017-10-01 10:25] LABS: CALCIUM 8.6 mg/dL (8.5-10.1); CREATININE 1.1 mg/dL (0.7-1.3); POTASSIUM 4.7 mmol/L (3.5-5.1)
[2017-10-01 19:24] VITALS: BP 83/58
[2017-10-01 22:08] VITALS: BP 88/60
[2017-10-02 03:37] VITALS: BP 90/62
[2017-10-02 06:16] LABS: HEMOGLOBIN 7.5 gm/dL (14.0-18.0); MCH 31.8 pg (26.0-34.0); MCHC 34.3 g/dL (28.0-37.0); MCV 92.6 fL (80.0-100.0); RBC 2.37 mil/uL (4.50-6.00); RDW 14.2 % (10.5-14.5); WBC 11.6 thou/uL (4.0-11.0)
[2017-10-02 08:09] VITALS: BP 110/73
[2017-10-02 14:48] LABS: HEMATOCRIT 24.5 % (42.0-52.0); HEMOGLOBIN 8.5 gm/dL (14.0-18.0)
[2017-10-02 15:14] VITALS: BP 110/73
== END 2017-10-02 16:02 | disposition home or self-care (01) | DRG 329 ==
LOC: 3W 05:39 → TBA 05:39 → PRE 11:44 → 3W 15:52
PROVIDERS: Registered Nurse; Surgery
PROC: 0TQB4ZZ Repair Bladder, Percutaneous Endoscopic Approach (ICD-10-PCS; principal; 2017-09-28)
PROC: 8E0W4CZ Robotic Assisted Procedure of Trunk Region, Percutaneous Endoscopic Approach (ICD-10-PCS; principal; 2017-09-28)
PROC: 0DBN4ZZ Excision of Sigmoid Colon, Percutaneous Endoscopic Approach (ICD-10-PCS; principal; 2017-09-28)
PROC: 0T9880Z Drainage of Bilateral Ureters with Drainage Device, Via Natural or Artificial Opening Endoscopic (ICD-10-PCS; principal; 2017-09-28)
PROC: 0D1N4ZP Bypass Sigmoid Colon to Rectum, Percutaneous Endoscopic Approach (ICD-10-PCS; principal; 2017-09-28)
DX: K57.30 Diverticulosis of large intestine without perforation or abscess without bleeding (principal); N17.0 Acute kidney failure with tubular necrosis; N32.1 Vesicointestinal fistula; N32.89 Other specified disorders of bladder; N32.3 Diverticulum of bladder; J44.9 Chronic obstructive pulmonary disease, unspecified; E78.5 Hyperlipidemia, unspecified; Z86.718 Personal history of other venous thrombosis and embolism; Z86.711 Personal history of pulmonary embolism; Z79.51 Long term (current) use of inhaled steroids; Z79.82 Long term (current) use of aspirin; Z79.899 Other long term (current) drug therapy; Z88.2 Allergy status to sulfonamides
CPT/HCPCS: 10779; 50010; 50101; 50249; 50290; 50386; 50455; 50525; 50555; 50558; 50740; 50962; 51398; 51437; 51489; 52182; 52265; 54022; 54118; 56524; 56525; 56526; 56531; 56641; 56719; 57092; 57125; 57130; 57154; 62110; 62900; 70005

== ENCOUNTER → 2017-10-06 | Outpatient (CLI) | payer OTHER | LOC: RAD 09:46 | DX: N13.70 Vesicoureteral-reflux, unspecified (principal) ==